=== PATIENT | male | born 1980 | race Two or more races ===

== ENCOUNTER → 2018-03-16 | Emergency (ER) | payer OTHER ==
[~2018-03-16] VITALS: Ht 172.7 cm; Wt 77.1 kg
[~2018-03-16] MED LIST: APRESOLINE 10MG10 MG
== END | disposition left against medical advice (07) ==
LOC: EDBD 12:04 → ER 12:04
DX: I10 Essential (primary) hypertension (principal); R42 Dizziness and giddiness

== ENCOUNTER 2018-06-22 10:46 | Outpatient (CLI) | payer OTHER | END 2018-06-22 10:55 | disposition home or self-care (01) | LOC: RAD 501 10:46 | DX: M79.642 Pain in left hand (principal); M25.512 Pain in left shoulder ==